=== PATIENT | female | born 1985 | race African-American/Black ===

== ENCOUNTER 2016-10-31 09:05 | Emergency (ER) | payer MEDICAID, OTHER ==
[~2016-10-31] VITALS: Ht 172.7 cm; Wt 128.0 kg
[~2016-10-31 09:05] MED LIST: AMLO5TAB22 PO; NAPR250T57 PO; SUMA25 PO; VASE1025 PO
[2016-10-31 09:13] VITALS: BP 177/110; PULSE 85; RESP 15; TEMP 97.8; O2SAT 98
[2016-10-31 09:35] VITALS: BP_SYST 169; BP_SYST 176; BP_DIAS 100; BP_DIAS 102; PULSE 84; RESP 12; O2SAT 97
[2016-10-31] MEDS ORDERED: METO25TA3 PO ×2 (09:37→10:25)
[2016-10-31] MEDS ORDERED: HYDR25TA5 PO (09:37)
[2016-10-31] MEDS ORDERED: METOPROLOL TARTRATE 25 MG TAB PO ONE (10:00)
--- NOTE | 2016-10-31 10:07 | PD ---
HPI Chief Complaint: Hypertension Time Seen by Provider: 09:43 Travel History International Travel<30 days: No Contact w/Intl Traveler<30days: No Traveled to known affect area: No History of Present Illness HPI 31-year-old female complains of elevated blood pressure, chest discomfort and headache and nausea. Patient has history hypertension. Patient was on atenolol and lisinopril/HCTZ in the past. Patient ran out of medications since March 2016. Patient was seen by [facility] physician 3 days ago. Patient was put on metoprolol 25 mg twice a day and HCTZ 25 mg daily. Patient states that her blood pressures been running high despite the medications. Patient states that she has mild aching headache. Patient denies any visual change. Patient denies any neck pain. Patient states that she has intermittent chest tightness usually last about 5 minutes and not associated with exertion. Patient states that she has intermittent sweating and nausea for the past few days. Patient denies abdominal pain. Patient denies any focal weakness or numbness of the extremity. [facility] Past Medical History Cardiovascular Problems: Yes (HTN) Diminished Hearing: No Hypertension: Yes Migraines: Yes ?: Unknown LMP: 09/26/16 : 4 Para: 2 Miscarriage: 0 : 2 Past Surgical History Section: Yes Cholecystectomy: Yes Social History Alcohol Use: No Tobacco Use: No Substance Use: No Allergies-Medications (Allergen,Severity, Reaction): Coded Allergies: No Known Allergies (Unverified , 10/31/16) Reported Meds & Prescriptions Reported Meds & Active Scripts Active Reported Hydrochlorothiazide 25 Mg Tab 25 Mg PO DAILY Metoprolol Tartrate 25 Mg Tab 25 Mg PO BID Review of Systems General / Constitutional: No: Fever Eyes: No: Visual changes HENT: Positive: Headaches Cardiovascular: Positive: Chest Pain or Discomfort Respiratory: No: Shortness of Breath Gastrointestinal: No: Abdominal Pain Genitourinary: No: Dysuria Musculoskeletal: No: Pain Skin: No Rash Neurologic: No: Weakness Psychiatric: No: Depression Endocrine: No: Polydipsia Hematologic/Lymphatic: No: Easy Bruising Physical Exam Narrative GENERAL: Well-nourished, well-developed patient. SKIN: Focused skin assessment warm/dry. HEAD: Normocephalic. EYES: No scleral icterus. No injection or drainage. NECK: Supple, trachea midline. No JVD or lymphadenopathy. CARDIOVASCULAR: Regular rate and rhythm without murmurs, gallops, or rubs. RESPIRATORY: Breath sounds equal bilaterally. No accessory muscle use. GASTROINTESTINAL: Abdomen soft, non-tender, nondistended. MUSCULOSKELETAL: No cyanosis, or edema. BACK: Nontender without obvious deformity. No CVA tenderness. Neurologic exam normal. Data Data Last Documented VS Vital Signs Date Time Temp Pulse Resp B/P Pulse Ox O2 Delivery O2 Flow Rate FiO2 10/31/16 09:35 84 12 169/100 97 Room Air 176/102 10/31/16 09:13 97.8 Orders Metoprolol Tartrate (Lopressor) (10/31/16 10:00) Electrocardiogram (10/31/16 ) [facility] Medical Decision Making Medical Screen Exam Complete: Yes Emergency Medical Condition: Yes Interpretation(s) 10:23 AM. EKG shows sinus rhythm nonspecific ST-T wave change. Differential Diagnosis Differential diagnosis including uncontrolled hypertension, hypertensive urgency , hypertensive crisis, viral syndrome, gastroenteritis. Narrative Course 31-year-old female with elevated blood pressure, chest discomfort headache sweats and nausea. Diagnosis Primary Impression: Uncontrolled hypertension Patient Instructions: General Instructions Additional Instructions: Increase metoprolol to 50 mg twice a day. Continue with HCTZ. Follow-up with personal physician for blood pressure check. Return if worse. Med/Other Pt SpecificInfo: Existing Med Changed Scripts Metoprolol Tartrate 25 Mg Tab50 Mg PO BID #60 TAB Ref 0 Prov:Carlos Love MD 10/31/16 Disposition: 01 DISCHARGE HOME Condition: Stable Carlos Love MD Oct 31, 2016 10:06
[2016-10-31 10:30] VITALS: BP 156/92; PULSE 86; RESP 14; O2SAT 97
--- NOTE | 2016-11-01 13:42 | EKG ---
Date Performed: 10/31/2016 Time Performed: 10:09:07 PTAGE: 31 years EKG: Sinus rhythm NONSPECIFIC T-WAVE ABNORMALITY BORDERLINE ECG NO PREVIOUS TRACING DOCTOR: Vineet Larkin Interpretating Date/Time 11/01/2016 13:37:33
[2016-11-12] MEDS ORDERED: LISI-515 PO ×2 (11:52→11:54)
[2016-11-19] MEDS ORDERED: AMLO10TA2 PO (15:38)
[2016-11-27] MEDS ORDERED: METO50TA PO (16:58)
[2016-12-20] MEDS ORDERED: LISI-515 PO (12:17)
[2016-12-20] MEDS ORDERED: ATEN50TA PO (12:17)
[2017-01-21] MEDS ORDERED: DILT60CA PO (09:34)
[2017-01-27] MEDS ORDERED: DILT-60 PO (06:58)
== END 2016-10-31 10:58 | disposition home or self-care (01) ==
LOC: NEPD 09:05
DX: I10 Essential (primary) hypertension (principal)
CPT/HCPCS: 93005

== ENCOUNTER 2017-07-11 13:25 | Emergency (ER) | payer OTHER ==
[~2017-07-11 13:25] MED LIST changes: -AMLO5TAB22 PO; +ESTR0.62 VAGINAL; +LABE200T2 PO; +LISI-515 PO; +METR1TAB76 PO; -NAPR250T57 PO; +NIFE60TA58 PO; -SUMA25 PO; -VASE1025 PO
[2017-07-11 13:26] VITALS: BP 171/101; PULSE 96; RESP 12; TEMP 97.8; O2SAT 99
--- NOTE | 2017-07-11 13:44 | PD ---
HPI Chief Complaint: Hypertension Time Seen by Provider: 13:41 Travel History International Travel<30 days: No Contact w/Intl Traveler<30days: No Traveled to known affect area: No History of Present Illness HPI 32-year-old female patient with history of hypertension, on 3 hypertension medications, one of them added recently, presents to the ER today because of elevated blood pressures, headaches, blurry vision, and states that she gets this with her blood pressures being high. She denies any chest pains, shortness of breath, or any other symptoms. She states that she has been compliant with her medications and took her blood pressure medications this morning. Modifying Factors: None Associated Signs & Symptoms: High blood pressure, headaches Risk Factors: History of hypertension PFSH Past Medical History Cardiovascular Problems: Yes (HTN) Diminished Hearing: No Hypertension: Yes Migraines: Yes LMP: 06/07/17 : 4 Para: 2 Miscarriage: 0 : 2 Past Surgical History Section: Yes Cholecystectomy: Yes Social History Alcohol Use: No Tobacco Use: No Substance Use: No Allergies-Medications (Allergen,Severity, Reaction): Coded Allergies: No Known Allergies (Unverified Adverse Reaction, Unknown, 05/27/17) Reported Meds & Prescriptions Reported Meds & Active Scripts Active Premarin Vaginal (Estrogens, Conjugated Vaginal) 0.625 Mg/Gm Cream 1 Applic VAGINAL HS Apply small amount to vaginal area at bedtime with finger. Nifedipine ER 24 HR (Nifedipine) 60 Mg Tab 60 Mg PO DAILY Do not start until you have completed diltizem Labetalol (Labetalol HCl) 200 Mg Tab 200 Mg PO BID Metronidazole 500 Mg Tab 500 Mg PO BID Lisinopril 20 Mg Tab 20 Mg PO BID Review of Systems Except as stated in HPI: all other systems reviewed are Neg Physical Exam Narrative GENERAL: Well-developed young -Italian female patient currently in mild distress. Awake and oriented 3. SKIN: Focused skin assessment warm/dry. HEAD: Atraumatic. Normocephalic. EYES: Pupils equal and round. No scleral icterus. No injection or drainage. ENT: No nasal bleeding or discharge. Mucous membranes pink and moist. NECK: Trachea midline. No JVD. CARDIOVASCULAR: Regular rate and rhythm. No murmur appreciated. RESPIRATORY: No accessory muscle use. Clear to auscultation. Breath sounds equal bilaterally. GASTROINTESTINAL: Abdomen soft, non-tender, nondistended. Hepatic and splenic margins not palpable. MUSCULOSKELETAL: No obvious deformities. No clubbing. No cyanosis. No edema. NEUROLOGICAL: Awake and alert. No obvious cranial nerve deficits. Motor grossly within normal limits. Normal speech. PSYCHIATRIC: Appropriate mood and affect; insight and judgment normal. Data Data Last Documented VS Vital Signs Date Time Temp Pulse Resp B/P (MAP) Pulse Ox O2 Delivery O2 Flow Rate FiO2 07/11/17 14:38 75 16 136/88 (104) 99 07/11/17 14:03 Room Air 07/11/17 13:26 97.8 Orders Orders Complete Blood Count With Diff (07/11/17 13:41) Basic Metabolic Panel (Bmp) (07/11/17 13:41) Ct Brain W/O Iv Contrast(Rout) (07/11/17 13:41) Ecg Monitoring (07/11/17 13:41) Iv Access Insert/Monitor (07/11/17 13:41) Oximetry (07/11/17 13:41) Sodium Chloride 0.9% Flush (Ns Flush) (07/11/17 13:45) Electrocardiogram (07/11/17 13:41) Troponin I (07/11/17 13:41) Clonidine (Catapres) (07/11/17 13:45) Electrocardiogram (07/11/17 ) Acetaminophen (Tylenol) (07/11/17 14:30) Labs Laboratory Tests Test 07/11/17 13:50 White Blood Count 6.3 TH/MM3 Red Blood Count 4.13 MIL/MM3 Hemoglobin 13.3 GM/DL Hematocrit 39.2 % Mean Corpuscular Volume 95.0 FL Mean Corpuscular Hemoglobin 32.1 PG Mean Corpuscular Hemoglobin Concent 33.8 % Red Cell Distribution Width 12.9 % Platelet Count 250 TH/MM3 Mean Platelet Volume 8.8 FL Neutrophils (%) (Auto) 47.1 % Lymphocytes (%) (Auto) 39.0 % Monocytes (%) (Auto) 8.6 % Eosinophils (%) (Auto) 3.8 % Basophils (%) (Auto) 1.5 % Neutrophils # (Auto) 2.9 TH/MM3 Lymphocytes # (Auto) 2.4 TH/MM3 Monocytes # (Auto) 0.5 TH/MM3 Eosinophils # (Auto) 0.2 TH/MM3 Basophils # (Auto) 0.1 TH/MM3 CBC Comment DIFF FINAL Differential Comment Blood Urea Nitrogen 9 MG/DL Creatinine 0.72 MG/DL Random Glucose 84 MG/DL Calcium Level 8.4 MG/DL Sodium Level 140 MEQ/L Potassium Level 3.4 MEQ/L Chloride Level 106 MEQ/L Carbon Dioxide Level 27.6 MEQ/L Anion Gap 6 MEQ/L Estimat Glomerular Filtration Rate 114 ML/MIN Troponin I LESS THAN 0.02 NG/ML MDM Medical Decision Making Medical Screen Exam Complete: Yes Emergency Medical Condition: Yes Medical Record Reviewed: Yes Interpretation(s) EKG shows NSR, no ST elevation or depression, and no arrhythmias. No significant T-wave inversions. Laboratory Tests Test 07/11/17 13:50 Monocytes (%) (Auto) 8.6 % (0.0-8.0) Calcium Level 8.4 MG/DL (8.5-10.1) Potassium Level 3.4 MEQ/L (3.5-5.1) Troponin I LESS THAN 0.02 NG/ML Differential Diagnosis High blood pressures, headaches: Hypertensive urgency versus migraine headaches versus acute intracranial processes Narrative Course CAT scan of the brain is negative for any signs of acute intracranial processes. She has no meningeal signs. Patient's blood pressure came down on its own before I was able to give her any further blood pressure medications. It appears that the blood pressure medications she is taking is starting to kick in. At this point, I do not see any signs of acute processes and my plan would be to release her with follow-up to primary care physician for further treatment of chronic hypertension. Return for any worsening in symptoms or new issues as needed. The plan has been discussed with her and she states understanding. Diagnosis Primary Impression: Head ache Additional Impression: Uncontrolled hypertension Disposition: 01 DISCHARGE HOME Condition: Stable Gissell Viramontes MD Jul 11, 2017 13:44
[2017-07-11] MEDS ORDERED: cloNIDine HCL 0.2 MG TAB PO ONE (13:45)
[2017-07-11] MEDS ORDERED: SODIUM CHLORIDE 0.9% FLUSH 10 ML FLUSH IVF PRN (13:45)
[2017-07-11 14:00] VITALS: O2SAT 97
[2017-07-11 14:03] VITALS: BP 147/85; PULSE 75; RESP 16; O2SAT 97
[2017-07-11 14:14] LABS: AUTOMATED NEUTROPHIL # 2.9 TH/MM3 (1.8-7.7); BASOPHIL # 0.1 TH/MM3 (0-0.2); BASOPHIL % 1.5 % (0.0-2.0); EOSINOPHIL # 0.2 TH/MM3 (0-0.4); EOSINOPHIL % 3.8 % (0.0-4.0); HEMATOCRIT 39.2 % (35.0-46.0); HEMOGLOBIN 13.3 GM/DL (11.6-15.3); LYMPHOCYTE # 2.4 TH/MM3 (1.0-4.8); MEAN CORPUSCULAR HEMOGLOBIN 32.1 PG (27.0-34.0); MEAN CORPUSCULAR HGB CONC 33.8 % (32.0-36.0); MEAN PLATELET VOLUME 8.8 FL (7.0-11.0); MONO % 8.6 % (0.0-8.0); MONOCYTE # 0.5 TH/MM3 (0-0.9); NEUT % 47.1 % (16.0-70.0); PLATELET COUNT 250 TH/MM3 (150-450); RED BLOOD COUNT 4.13 MIL/MM3 (4.00-5.30); RED CELL DISTRIBUTION WIDTH 12.9 % (11.6-17.2); WHITE BLOOD COUNT 6.3 TH/MM3 (4.0-11.0)
[2017-07-11 14:29] LABS: BICARBONATE 27.6 MEQ/L (21.0-32.0); BLOOD UREA NITROGEN 9 MG/DL (7-18); CALCIUM 8.4 MG/DL (8.5-10.1); CHLORIDE 106 MEQ/L (98-107); CREATININE 0.72 MG/DL (0.50-1.00); GLOMERULAR FILTRATION RATE 114 ML/MIN (>89); GLUCOSE,RANDOM 84 MG/DL (74-106); SODIUM (NA) 140 MEQ/L (136-145)
[2017-07-11] MEDS ORDERED: ACETAMINOPHEN 500 MG CPLT PO ONE (14:30)
[2017-07-11 14:32] LABS: TROPONIN I LESS THAN 0.02 NG/ML (0.02-0.05)
[2017-07-11 14:38] VITALS: BP 136/88; PULSE 75; RESP 16; O2SAT 99
--- NOTE | 2017-07-11 14:52 | RADRPT ---
EXAM DATE/TIME: 07/11/2017 14:13 [facility] COMPARISON: No previous studies available for comparison. INDICATIONS : Headache, hypertension. RADIATION DOSE: 42.22 CTDIvol (mGy) MEDICAL HISTORY : Hypertension. SURGICAL HISTORY : None. ENCOUNTER: Initial ACUITY: 1 day PAIN SCALE: 8/10 LOCATION: Bilateral cranial TECHNIQUE: Multiple contiguous axial images were obtained of the head. Using automated exposure control and adj ustment of the mA and/or kV according to patient size, radiation dose was kept as low as reasonably a chievable to obtain optimal diagnostic quality images. DICOM format image data is available electro nically for review and comparison. FINDINGS: CEREBRUM: The ventricles are normal for age. No evidence of midline shift, mass lesion, hemorrhage or acute in farction. No extra-axial fluid collections are seen. POSTERIOR FOSSA: The cerebellum and brainstem are intact. The 4th ventricle is midline. The cerebellopontine angle i s unremarkable. EXTRACRANIAL: The visualized portion of the orbits is intact. SKULL: The calvaria is intact. No evidence of skull fracture. CONCLUSION: 1. No acute cranial abnormality. Chirag aCraballo MD on July 11, 2017 at 14:47 Board Certified Radiologist. This report was verified electronically.
[2017-07-11 15:24] VITALS: BP 138/89
--- NOTE | 2017-07-11 21:34 | EKG ---
Date Performed: 07/11/2017 Time Performed: 13:45:42 PTAGE: 32 years EKG: Sinus rhythm NONSPECIFIC T-WAVE ABNORMALITY BORDERLINE ECG PREVIOUS TRACING : 10/31/2016 10.09 No significant change from previous tracing noted. DOCTOR: Devan Olivia Interpretating Date/Time 07/11/2017 21:33:24
== END 2017-07-11 15:25 | disposition home or self-care (01) ==
LOC: NEPC 13:25
DX: R51 Headache (principal); I10 Essential (primary) hypertension; R94.31 Abnormal electrocardiogram [ECG] [EKG]
CPT/HCPCS: 70450; 80048; 84484; 85025; 93005; 99285

== ENCOUNTER 2017-07-14 17:44 | Observation (INO) | payer OTHER ==
[~2017-07-14] VITALS: Ht 175.3 cm; Wt 125.5 kg
[2017-07-14 17:46] VITALS: BP 196/122; PULSE 91; RESP 14; TEMP 98.4; O2SAT 99
[2017-07-14 18:58] LABS: AUTOMATED NEUTROPHIL # 3.7 TH/MM3 (1.8-7.7); BASOPHIL # 0.1 TH/MM3 (0-0.2); EOSINOPHIL # 0.2 TH/MM3 (0-0.4); EOSINOPHIL % 2.9 % (0.0-4.0); HEMATOCRIT 42.6 % (35.0-46.0); HEMO FLAGS DIFF FINAL; LYMPH % 39.6 % (9.0-44.0); LYMPHOCYTE # 3.1 TH/MM3 (1.0-4.8); MEAN CELL VOLUME 95.1 FL (80.0-100.0); MEAN CORPUSCULAR HEMOGLOBIN 31.9 PG (27.0-34.0); MEAN CORPUSCULAR HGB CONC 33.5 % (32.0-36.0); MONO % 8.9 % (0.0-8.0); NEUT % 47.6 % (16.0-70.0); PLATELET COUNT 252 TH/MM3 (150-450); RED BLOOD COUNT 4.48 MIL/MM3 (4.00-5.30); RED CELL DISTRIBUTION WIDTH 13.2 % (11.6-17.2); WHITE BLOOD COUNT 7.8 TH/MM3 (4.0-11.0)
[2017-07-14 19:18] LABS: ANION GAP 7 MEQ/L (5-15); BICARBONATE 26.9 MEQ/L (21.0-32.0); BLOOD UREA NITROGEN 9 MG/DL (7-18); CHLORIDE 102 MEQ/L (98-107); GLOMERULAR FILTRATION RATE 102 ML/MIN (>89); MAGNESIUM 1.9 MG/DL (1.5-2.5); POTASSIUM 3.4 MEQ/L (3.5-5.1); SODIUM (NA) 136 MEQ/L (136-145)
[2017-07-14 19:23] LABS: CREATINE KINASE 335 U/L (26-192)
[2017-07-14 20:32] VITALS: BP 170/89; PULSE 77; RESP 18; O2SAT 99
[2017-07-14] MEDS ORDERED: ASPIRIN 81 MG CHEW TAB CHEW ONE (20:45)
[2017-07-14 21:08] VITALS: BP 173/111; PULSE 81; RESP 18; O2SAT 100
--- NOTE | 2017-07-14 21:52 | RADRPT ---
EXAM DATE/TIME: 07/14/2017 20:55 [facility] COMPARISON: No previous studies available for comparison. INDICATIONS : Chest pain. MEDICAL HISTORY : Hypertension. SURGICAL HISTORY : None. ENCOUNTER: Initial ACUITY: 1 day PAIN SCORE: 5/10 LOCATION: Bilateral chest FINDINGS: A single view of the chest demonstrates the lungs to be symmetrically aerated without evidence of mas s, infiltrate or effusion. The cardiomediastinal contours are unremarkable. Osseous structures are intact. CONCLUSION: The lungs are clear. Neeraj Leos MD on July 14, 2017 at 21:49 Board Certified Radiologist. This report was verified electronically.
[2017-07-14] MEDS ORDERED: KETOROLAC TROMETHAMINE 30 MG/ML (IVP) VIAL IV PUSH ONE (23:00)
[2017-07-14] MEDS ORDERED: PROCHLORPERAZINE INJ 10 MG/2 ML VIAL IV PUSH ONE (23:00)
[2017-07-14] MEDS ORDERED: hydrALAZINE HCL 20 MG/ML VIAL IV PUSH ONE (23:00)
[2017-07-14] MEDS ORDERED: diphenhydrAMINE HCL 50 MG/ML VIAL IV PUSH ONE (23:00)
[2017-07-14 23:22] VITALS: BP 175/107; PULSE 82; RESP 18; O2SAT 100
[2017-07-15] VITALS (10 sets, daily range): BP systolic 135–189; BP diastolic 62–120; PULSE 85–93; RESP 16–18; TEMP 98–98.6; O2SAT 97–100
[2017-07-15] MEDS ORDERED: SODIUM CHLORIDE 0.9% FLUSH 10 ML FLUSH IV FLUSH PRN
--- NOTE | 2017-07-15 00:23 | PD ---
HPI Chief Complaint: Hypertension Time Seen by Provider: 20:34 Travel History International Travel<30 days: Yes Contact w/Intl Traveler<30days: [place] Traveled to: [facility] Traveled to known affect area: No History of Present Illness HPI Patient is a 32-year-old female history of hypertension, who comes in complaining of high blood pressure. She was here a few days ago for the same thing. She says her doctor recently changed her medication, and she feels that is not working. She says she's been having episodes of chest pain with this. She also reports episodes of headaches. She reports compliance with her medications. She says the pain is in the center of her chest and comes and goes. She denies cold symptoms. She denies fever or chills. PFSH Past Medical History Cardiovascular Problems: Yes (HTN) Diminished Hearing: No Hypertension: Yes Migraines: Yes ?: Unknown LMP: 05/30/17 : 4 Para: 2 Miscarriage: 0 : 2 Past Surgical History Section: Yes Cholecystectomy: Yes Social History Alcohol Use: No Tobacco Use: No Substance Use: No Allergies-Medications (Allergen,Severity, Reaction): Coded Allergies: No Known Allergies (Unverified Adverse Reaction, Unknown, 07/14/17) Reported Meds & Prescriptions Reported Meds & Active Scripts Active Nifedipine ER 24 HR (Nifedipine) 60 Mg Tab 60 Mg PO DAILY Do not start until you have completed diltizem Labetalol (Labetalol HCl) 200 Mg Tab 200 Mg PO BID Lisinopril 20 Mg Tab 20 Mg PO BID Review of Systems Except as stated in HPI: all other systems reviewed are Neg General / Constitutional: No: Fever, Chills Eyes: No: Blurred Vision HENT: Positive: Headaches Cardiovascular: Positive: Chest Pain or Discomfort Respiratory: No: Shortness of Breath Gastrointestinal: Positive: Nausea, No: Vomiting Musculoskeletal: No: Myalgias, Edema Skin: No Rash, No Change in Pigmentation Neurologic: No: Weakness, Dizziness Physical Exam Narrative GENERAL: Awake and alert, in no acute distress. SKIN: Focused skin assessment warm/dry. HEAD: Atraumatic. Normocephalic. EYES: Pupils equal and round. No scleral icterus. ENT: Mucous membranes pink and moist. NECK: Trachea midline. No JVD. CARDIOVASCULAR: Regular rate and rhythm. No murmur appreciated. RESPIRATORY: No accessory muscle use. Clear to auscultation. Breath sounds equal bilaterally. GASTROINTESTINAL: Abdomen soft, non-tender, nondistended. MUSCULOSKELETAL: No obvious deformities. No clubbing. No cyanosis. No edema. NEUROLOGICAL: Awake and alert. No obvious cranial nerve deficits. Motor grossly within normal limits. Normal speech. PSYCHIATRIC: Appropriate mood and affect; insight and judgment normal. Data Data Last Documented VS Vital Signs Date Time Temp Pulse Resp B/P (MAP) Pulse Ox O2 Delivery O2 Flow Rate FiO2 07/14/17 23:22 82 18 175/107 (129) 100 07/14/17 20:29 Room Air 07/14/17 17:46 98.4 Orders Orders Electrocardiogram (07/14/17 17:54) Basic Metabolic Panel (Bmp) (07/14/17 17:54) Ckmb (Isoenzyme) Profile (07/14/17 17:54) Complete Blood Count With Diff (07/14/17 17:54) Magnesium (Mg) (07/14/17 17:54) Troponin I (07/14/17 17:54) CKMB (07/14/17 18:40) CKMB% (07/14/17 18:40) Chest, Single Ap (07/14/17 ) Ed Urine Pregnancytest Poc (07/14/17 20:44) Aspirin Chew (Aspirin Chew) (07/14/17 20:45) Ketorolac Inj (Toradol Inj) (07/14/17 23:00) Diphenhydramine Inj (Benadryl Inj) (07/14/17 23:00) Prochlorperazine Inj (Compazine Inj) (07/14/17 23:00) Hydralazine Inj (Apresoline Inj) (07/14/17 23:00) Activity Bed Rest With Brp (07/14/17 23:57) Vital Signs (Adult) Q4H (07/14/17 23:57) Cardiac Rhythm .As Directed (07/14/17 23:57) Notify Dr: Other .PRN (07/14/17 23:57) Notify Parameters (07/14/17 23:57) Resp Oxygen Nasal Cannula (07/14/17 ) Diet Heart Healthy (07/15/17 Breakfast) Ckmb (Isoenzyme) Profile (07/14/17 23:57) Ckmb (Isoenzyme) Profile (07/15/17 02:57) Troponin I (07/14/17 23:57) Troponin I (07/15/17 02:57) Electrocardiogram (07/14/17 23:57) Electrocardiogram (07/15/17 02:57) ^ Obtain (07/14/17 23:57) Sodium Chloride 0.9% Flush (Ns Flush) (07/15/17 00:00) Sodium Chloride 0.9% Flush (Ns Flush) (07/15/17 09:00) Plastics Spreading Machine Operator / Telemetry [id number] (07/14/17 23:57) Admit Order (Ed Use Only) (07/14/17 ) Labs Laboratory Tests Test 07/14/17 18:40 White Blood Count 7.8 TH/MM3 Red Blood Count 4.48 MIL/MM3 Hemoglobin 14.3 GM/DL Hematocrit 42.6 % Mean Corpuscular Volume 95.1 FL Mean Corpuscular Hemoglobin 31.9 PG Mean Corpuscular Hemoglobin Concent 33.5 % Red Cell Distribution Width 13.2 % Platelet Count 252 TH/MM3 Mean Platelet Volume 9.2 FL Neutrophils (%) (Auto) 47.6 % Lymphocytes (%) (Auto) 39.6 % Monocytes (%) (Auto) 8.9 % Eosinophils (%) (Auto) 2.9 % Basophils (%) (Auto) 1.0 % Neutrophils # (Auto) 3.7 TH/MM3 Lymphocytes # (Auto) 3.1 TH/MM3 Monocytes # (Auto) 0.7 TH/MM3 Eosinophils # (Auto) 0.2 TH/MM3 Basophils # (Auto) 0.1 TH/MM3 CBC Comment DIFF FINAL Differential Comment Blood Urea Nitrogen 9 MG/DL Creatinine 0.79 MG/DL Random Glucose 85 MG/DL Calcium Level 8.5 MG/DL Magnesium Level 1.9 MG/DL Sodium Level 136 MEQ/L Potassium Level 3.4 MEQ/L Chloride Level 102 MEQ/L Carbon Dioxide Level 26.9 MEQ/L Anion Gap 7 MEQ/L Estimat Glomerular Filtration Rate 102 ML/MIN Total Creatine Kinase 335 U/L Creatine Kinase MB 1.0 NG/ML Creatine Kinase MB % 0.3 % Troponin I LESS THAN 0.02 NG/ML MDM Medical Decision Making Medical Screen Exam Complete: Yes Emergency Medical Condition: Yes Medical Record Reviewed: Yes Interpretation(s) ECG shows normal sinus rhythm, no ST elevation or depression, normal intervals. Differential Diagnosis Benign essential hypertension versus hypertensive urgency versus ACS Narrative Course Patient is a 32-year-old female comes in complaining of headache with high blood pressure and chest pain. Patient is hypertensive on arrival. Exam shows no acute abnormalities. IV status, labs sent. Patient connected to the blood tester. Troponin is negative. Labs show no other acute abnormalities. Patient given aspirin. Given Compazine, Benadryl, Toradol for her headache. Given a dose of hydralazine. Patient's blood pressure goes up as she gets anxious and aggravated. She is frustrated that "no one is doing anything for her." Due to chest pain and the fact that she is on 3 blood pressure medications and continues to have high blood pressure causing chest pain, she will be placed in the chest pain center for further management. Diagnosis Primary Impression: Chest pain Qualified Codes: R07.9 - Chest pain, unspecified Additional Impressions: Head ache Qualified Codes: R51 - Headache Uncontrolled hypertension Admitting Information Admitting Physician Requests: Cynthia Hand MD Jul 15, 2017 00:23
[2017-07-15 01:22] LABS: CREATINE KINASE 291 U/L (26-192)
[2017-07-15 01:36] LABS: CKMB 1.1 NG/ML (0.5-3.6)
[2017-07-15 06:16] LABS: CREATINE KINASE 272 U/L (26-192)
[2017-07-15] MEDS ORDERED: LISINOPRIL 20 MG TAB PO SCH (09:00)
[2017-07-15] MEDS ORDERED: LABETALOL HCL 200 MG TAB PO SCH (09:00)
[2017-07-15] MEDS ORDERED: SODIUM CHLORIDE 0.9% FLUSH 10 ML FLUSH IV FLUSH SCH (09:00)
[2017-07-15] MEDS ORDERED: NIFEdipine 90 MG SUSTAINED RELEASE TAB PO SCH (09:00)
--- NOTE | 2017-07-15 09:25 | HHI.HP ---
HPI Primary Care Physician Irving Hurt MD Chief Complaint High blood pressure and chest pain History of Present Illness This is a 32-year-old female that presents to ED with primary complaint of hypertension. She has been on medication for hypertension quite some time. She states when her blood pressure gets too high that she will get a discomfort in her chest. Recently her and her decided to try to have another child. They discussed this with patient's primary care physician secondary to attempting to get PCP took her off of Cardizem. She continued lisinopril and labetalol and nifedipine was added. She states her blood pressure has been high ever since. She has had a headache in her forehead which she also to be set been related to hypertension. Her discomforts are chest are in the center lasting 1-2 minutes. Not exertional. No associated shortness of breath, nausea, or diaphoresis. Denies numbness, tingling, weakness in extremities. Currently denies being but states she is actively trying to get with her and is using no preventive measures. Review of Systems General: Patient denies fevers, chills recent, and recent travel HEENT: Frontal headache. Patient denies sore throat, difficulty swallowing. Cardiovascular: Has the chest discomfort as mentioned above. Denies sensation of heart beating rapidly or irregularly. No syncope. Denies diaphoresis. Respiratory: Denies shortness of breath or inspirational chest discomfort. Denies coughing wheezing or hemoptysis. GI: Patient denies nausea, vomiting, diarrhea, abdominal pain, bloody stools. Musculoskeletal: Patient denies joint pain or edema. Denies calf pain or edema. Neurovascular: Frontal headache. Patient denies numbness, tingling, weakness in extremities. Endocrine: Denies polyuria and polydipsia. Hematologic: Denies easy bruising. Skin: Denies rash or itching. Past Family Social History Allergies: Coded Allergies: No Known Allergies (Unverified Adverse Reaction, Unknown, 07/14/17) Past Medical History Hypertension. Denies hyperlipidemia, diabetes, and known CAD. Past Surgical History and cholecystectomy. Reported Medications Reported Meds & Active Scripts Active Nifedipine ER 24 HR (Nifedipine) 60 Mg Tab 60 Mg PO DAILY Do not start until you have completed diltizem Labetalol (Labetalol HCl) 200 Mg Tab 200 Mg PO BID Lisinopril 20 Mg Tab 20 Mg PO BID Active Ordered Medications Current Medications Medications (Trade) Dose Ordered Sig/Brittnee Route Start Time Stop Time Status Last Admin (NS Flush) 2 ml UNSCH PRN IV FLUSH 07/15/17 00:00 (NS Flush) 2 ml BID IV FLUSH 07/15/17 09:00 07/15/17 08:28 (Trandate) 200 mg BID PO 07/15/17 09:00 (Prinivil) 20 mg BID PO 07/15/17 09:00 07/15/17 08:27 (Procardia Xl) 90 mg DAILY PO 07/15/17 09:00 Family History Denies family history of CAD. Social History Nonsmoker. Denies alcohol or illicit drug use. She is . Physical Exam Vital Signs Vital Signs Date Time Temp Pulse Resp B/P (MAP) Pulse Ox O2 Delivery O2 Flow Rate FiO2 07/15/17 07:21 98.5 93 18 143/100 (114) 97 07/15/17 04:05 98.0 88 18 174/110 (131) 98 07/15/17 03:06 85 07/15/17 02:30 98.0 87 18 178/87 (117) 98 07/15/17 01:15 07/15/17 00:42 85 16 135/62 (86) 100 07/15/17 00:11 100 07/14/17 23:22 82 18 175/107 (129) 100 07/14/17 21:08 81 18 173/111 (131) 100 07/14/17 20:32 77 18 170/89 (116) 99 07/14/17 20:29 79 18 99 Room Air 07/14/17 17:46 98.4 91 14 196/122 (146) 99 Physical Exam GENERAL: This is a well-nourished, well-developed patient, in no apparent distress. Patient speaks in clear complete sentences. Patient is pleasant. HEENT: Head is atraumatic and normocephalic. Neck is supple without lymphadenopathy and trachea is midline. No JVD or carotid bruits. CARDIOVASCULAR: Regular rate and rhythm without murmurs, gallops, or rubs. RESPIRATORY: Clear to auscultation. Breath sounds equal bilaterally. No wheezes , rales, or rhonchi. Chest wall is nontender. No use of accessory muscles. GASTROINTESTINAL: Abdomen is nontender, nondistended. Abdomen soft. No obvious pulsatile mass or bruit. No CVA tenderness. Strong femoral pulses bilaterally. Normal bowel sounds in all quadrants. MUSCULOSKELETAL: Patient is moving upper and lower extremities freely. No calf tenderness or edema, no Homans sign. Strong pulses in upper and lower extremities. NEUROLOGICAL: Patient is alert and oriented. Cranial nerves 2-12 are grossly intact. No focal deficits and speech is clear. SKIN: No rash and turgor is normal. Laboratory Laboratory Tests Test 07/14/17 18:40 07/15/17 00:45 07/15/17 05:27 White Blood Count 7.8 Red Blood Count 4.48 Hemoglobin 14.3 Hematocrit 42.6 Mean Corpuscular Volume 95.1 Mean Corpuscular Hemoglobin 31.9 Mean Corpuscular Hemoglobin Concent 33.5 Red Cell Distribution Width 13.2 Platelet Count 252 Mean Platelet Volume 9.2 Neutrophils (%) (Auto) 47.6 Lymphocytes (%) (Auto) 39.6 Monocytes (%) (Auto) 8.9 Eosinophils (%) (Auto) 2.9 Basophils (%) (Auto) 1.0 Neutrophils # (Auto) 3.7 Lymphocytes # (Auto) 3.1 Monocytes # (Auto) 0.7 Eosinophils # (Auto) 0.2 Basophils # (Auto) 0.1 CBC Comment DIFF FINAL Differential Comment Blood Urea Nitrogen 9 Creatinine 0.79 Random Glucose 85 Calcium Level 8.5 Magnesium Level 1.9 Sodium Level 136 Potassium Level 3.4 Chloride Level 102 Carbon Dioxide Level 26.9 Anion Gap 7 Estimat Glomerular Filtration Rate 102 Total Creatine Kinase 335 291 272 Creatine Kinase MB 1.0 1.1 1.0 Creatine Kinase MB % 0.3 0.4 0.4 Troponin I LESS THAN 0.02 LESS THAN 0.02 LESS THAN 0.02 Result Diagram: 07/14/17 1840 07/14/17 1840 Imaging Last 48 hours Impressions Chest X-Ray 07/14/17 0000 Signed Impressions: Service Date/Time: Friday, July 14, 2017 20:55 - CONCLUSION: The lungs are clear. Neeraj Leos MD Course EKGs are sinus rhythm with diffuse T-wave changes. Caprini VTE Risk Assessment Caprini VTE Risk Assessment: No/Low Risk (score <= 1) Caprini Risk Assessment Model Point Value = 1 Point Value = 2 Point Value = 3 Point Value = 5 Age 41-60 Minor surgery BMI > 25 kg/m2 Swollen legs Varicose veins or History of unexplained or recurrent spontaneous Oral contraceptives or hormone replacement Sepsis (< 1 month) Serious lung disease, including pneumonia (< 1 month) Abnormal pulmonary function Acute myocardial infarction Congestive heart failure (< 1 month) History of inflammatory bowel disease Medical patient at bed rest Age 61-74 Arthroscopic surgery Major open surgery (> 45 min) Laparoscopic surgery (> 45 min) Malignancy Confined to bed (> 72 hours) Immobilizing plaster cast Central venous access Age >= 75 History of VTE Family history of VTE Factor V Leiden Prothrombin [id number] Lupus anticoagulant Anticardiolipin antibodies Elevated serum homocysteine Heparin-induced thrombocytopenia Other congenital or acquired thrombophilia Stroke (< 1 month) Elective arthroplasty Hip, pelvis, or leg fracture Acute spinal cord injury (< 1 month) Prophylaxis Regimen Total Risk Factor Score Risk Level Prophylaxis Regimen 0-1 Low Early ambulation 2 Moderate Order ONE of the following: *Sequential Compression Device (SCD) *Heparin 5000 units SQ BID 3-4 Higher Order ONE of the following medications: *Heparin 5000 units SQ TID *Enoxaparin/Lovenox 40 mg SQ daily (WT < 150 kg, CrCl > 30 mL/min) *Enoxaparin/Lovenox 30 mg SQ daily (WT < 150 kg, CrCl > 10-29 mL/min) *Enoxaparin/Lovenox 30 mg SQ BID (WT < 150 kg, CrCl > 30 mL/min) AND/OR *Sequential Compression Device (SCD) 5 or more Highest Order ONE of the following medications: *Heparin 5000 units SQ TID (Preferred with Epidurals) *Enoxaparin/Lovenox 40 mg SQ daily (WT < 150 kg, CrCl > 30 mL/min) *Enoxaparin/Lovenox 30 mg SQ daily (WT < 150 kg, CrCl > 10-29 mL/min) *Enoxaparin/Lovenox 30 mg SQ BID (WT < 150 kg, CrCl > 30 mL/min) AND *Sequential Compression Device (SCD) Assessment and Plan Assessment and Plan * Chest pain: Patient has had serial cardiac enzymes and EKGs for ruling out purposes. Patient has been evaluated by Dr. Masters cardiology and the chest pain center. She will undergo a nuclear ETT secondary EKG changes. She' ll be discharged home if her stress test was nonischemic. Return to ED for interval issues. Patient is trying to become . It was explained to the patient that she should not be on lisinopril and should take measures to prevent until the medication is discontinued. * Pretension: Dr. Masters explained to the patient that the lisinopril but she takes is teratogenic and should not be used while trying to get . She has an appointment soon with a tank truck mechanic. We will increase nifedipine to 90 mg. She'll continue lisinopril and labetalol but is to take measures to prevent until being off lisinopril and having blood pressure under control and cleared by a physician. Patient voices understanding of this. Patient is stable at this time. She is agreeable to this plan. Arnulfo Benitez Jul 15, 2017 09:25
--- NOTE | 2017-07-15 10:51 | RADRPT ---
EXAM DATE/TIME: 07/15/2017 09:06 [facility] COMPARISON: No previous studies available for comparison. INDICATIONS : Center chest pain. Angina DOSE: 35 mCi Tc99m Myoview at stress 11 mCi Tc99m Myoview at rest REST HEART RATE: 89 BPM TARGET HEART RATE: 160 BPM MAX HEART RATE: 176 BPM REST BLOOD PRESSURE: 164/98 mmHg MAX BLOOD PRESSURE: 220/100 mmHg EJECTION FRACTION: 65% MEDICAL HISTORY : Hypertension. SURGICAL HISTORY : Cholecystectomy. ENCOUNTER: Initial ACUITY: 1 day PAIN SCALE: 3/10 LOCATION: Midsternal chest TECHNIQUE: The patient underwent upright treadmill exercise in the chest pain center. Continuous ECG tracing wa s monitored during stress. Gated SPECT imaging was performed after stress, and conventional SPECT im aging was performed at rest. The examination was performed on a SPECT/CT scanner, both attenuation-c orrected and non-corrected datasets were reviewed. FINDINGS: DISTRIBUTION: The maximum perfused segment at stress is in the <mid septal> wall. PERFUSION STUDY: The pattern of perfusion at stress is within normal limits. GATED STUDY: There is intact wall motion and thickening without hypokinetic or dyskinetic segments. CONCLUSION: Normal examination. RISK CATEGORY: Low (<1% Annual Mortality Rate) Keyshawn Love MD on July 15, 2017 at 10:48 Board Certified Radiologist. This report was verified electronically.
[2017-07-15] MEDS ORDERED: NIFE1TAB PO (11:18)
--- NOTE | 2017-07-15 11:19 | HHI.DCPOC ---
Discharge Care Plan Diagnosis: (1) Chest pain (2) Hypertension Goals to Promote Your Health TAKE ALL PRECAUTIONS TO PREVENT WHILE TAKING LISINOPRIL AND UNTIL YOU HAVE BEEN CLEARED BY PHYSICIAN WITH CONTROLLED HYPERTENSION. * To prevent worsening of your condition and complications * To maintain your health at the optimal level Directions to Meet Your Goals Take your medications as prescribed Follow your dietary instruction Follow activity as directed Keep your appointments as scheduled Take your immunizations and boosters as scheduled If your symptoms worsen call your PCP, if no PCP go to Urgent Care Center or Emergency Room Smoking is Dangerous to Your Health. Avoid second hand smoke Call the 24-hour hour crisis hotline for domestic abuse at Arnulfo Benitez Jul 15, 2017 11:19
--- NOTE | 2017-07-15 15:50 | EKG ---
Date Performed: 07/14/2017 Time Performed: 19:22:28 PTAGE: 32 years EKG: Sinus rhythm NONSPECIFIC T-WAVE ABNORMALITY BORDERLINE ECG Since PREVIOUS TRACING , no significant change noted PREVIOUS TRACIN07/11/2017 13.45 DOCTOR: Velvet Masters Interpretating Date/Time 07/15/2017 15:48:14
--- NOTE | 2017-07-15 15:51 | EKG ---
Date Performed: 07/15/2017 Time Performed: 00:47:18 PTAGE: 32 years EKG: Sinus rhythm MODERATE T-WAVE ABNORMALITY, CONSIDER ANTERIOR ISCHEMIA ABNORMAL ECG Since PREVIOUS TRACING , no significant change noted PREVIOUS TRACIN07/14/2017 19.22 DOCTOR: Velvet Masters Interpretating Date/Time 07/15/2017 15:49:12
--- NOTE | 2017-07-15 15:52 | EKG ---
Date Performed: 07/15/2017 Time Performed: 06:01:58 PTAGE: 32 years EKG: Sinus rhythm MODERATE T-WAVE ABNORMALITY, CONSIDER ANTEROLATERAL ISCHEMIA ABNORMAL ECG Since PREVIOUS TRACING , no significant change noted PREVIOUS TRACIN07/14/2017 19.22 DOCTOR: Velvet Masters Interpretating Date/Time 07/15/2017 15:51:13
--- NOTE | 2017-07-15 15:53 | TR ---
Date Performed: 07/15/2017 Time Performed: 09:35:11 DOCTOR: Velvet Masters DRUG LIST: CLINICAL HISTORY: REASON FOR TEST: REASON FOR ENDING: OBSERVATION: CONCLUSION: NUC ETT. CP WAS REPRODUCED AND WAS TENDER TO TOUCH. MILD SOB. Maximum MY=263 % Max H R Achieved=94.0% Maximum MX=354/100 Total Exercise Time=8:00 COMMENTS:
[2017-07-15] MEDS ORDERED: LABE200T2 PO (16:24)
== END 2017-07-15 15:06 | disposition home or self-care (01) ==
LOC: NEPD 17:44 → NEDA 23:59 → NEPHCDU 07-15 00:56
PROVIDERS: ADMIT Internal Medicine Cardiovascular Disease; ATTEND Internal Medicine Cardiovascular Disease
DX: R07.89 Other chest pain (principal); R51 Headache; R94.31 Abnormal electrocardiogram [ECG] [EKG]; I10 Essential (primary) hypertension; I20.9 Angina pectoris, unspecified; Z79.899 Other long term (current) drug therapy
CPT/HCPCS: 71010; 78452; 80048; 82550; 82552; 83735; 84484; 84703; 85025; 93005; 93017; 96374; 96375; 99285; A9502; G0378; J0360; J0780; J1200; J1885